=== PATIENT | female | born 1955 | race American Indian/Alaskan Native ===

== ENCOUNTER 2017-10-19 08:54 | Outpatient (CLI) | payer OTHER | END 2017-10-19 08:55 | disposition home or self-care (01) | LOC: PF 08:54 | PROVIDERS: ATTEND Internal Medicine | DX: Z02.71 Encounter for disability determination (principal); J45.909 Unspecified asthma, uncomplicated; G47.33 Obstructive sleep apnea (adult) (pediatric); I48.91 Unspecified atrial fibrillation; I63.9 Cerebral infarction, unspecified; Z87.891 Personal history of nicotine dependence | CPT/HCPCS: 94010; 94729 ==